=== PATIENT | male | born 2005 | race Caucasian/White ===

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

== ENCOUNTER 2024-02-08 02:26 | Outpatient (CLI) | payer OTHER, SELFPAY ==
[2024-02-08 12:43] LABS: Abs Immature Grans 0.02 10^3/uL (0.0-0.06); Absolute Basophil Count 0.03 10^3/uL (0.0-0.2); Absolute Eosinophil Count 0.05 10^3/uL (0.0-0.7); Absolute Lymphocyte Count 1.55 10^3/uL (1.2-3.4); Absolute Monocyte Count 0.36 10^3/uL (0.1-0.8); Absolute Neutrophil Count 2.78 10^3/uL (1.2-6.7); Basophils % 0.6 %; HCT 47.2 % (40.0-50.0); HGB 16.1 g/dL (13.5-17.5); Immature Grans % 0.4 %; Lymphocytes % 32.4 %; MCH 29.8 pg (27.0-33.0); MCHC 34.1 % (32.0-36.0); MCV 87 fL (80-95); MPV 11.1 fL (8.0-11.0); Monocytes % 7.5 %; Neutrophils % 58.1 %; Platelet Count 249 10^3/uL (130-400); RDW 12.5 % (11.8-14.1); RDW-SD 39.8 fL; WBC 4.79 10^3/uL (4.4-10.8)
[2024-02-08 13:16] LABS: Iron 77 ug/dL (65-175); Total Iron Binding Capacity 318 ug/dL (250-450)
[2024-02-08 13:20] LABS: Hemoglobin A1C 5.4 % (<5.7)
[2024-02-08 13:31] LABS: ALT 35 U/L (16-63); AST 17 U/L (15-37); Albumin 3.9 g/dL (3.4-5.0); Alkaline Phosphatase 46 U/L (46-116); Anion Gap 8.3 mmol/L (3-11); BUN 15 mg/dL (7-18); Bilirubin, Total 0.41 mg/dL (0.2-1.0); CO2 27.7 mmol/L (21.0-32.0); Calculated LDL 82 mg/dL (<100); Chloride 105 mmol/L (98-107); Cholesterol 150 mg/dL (<200); Ferritin 137 ng/mL (26-388); Glucose 85 mg/dL (74-106); HDL Cholesterol 57 mg/dL (40-60); Potassium 3.9 mmol/L (3.5-5.1); Sodium 141 mmol/L (136-145); TSH (W/Ref FT4) 2.75 uIU/mL (0.36-3.74); Total Protein 7.7 g/dL (6.4-8.2); Triglyceride 59 mg/dL (<150); Vitamin B12 615 pg/mL (193-986)
[2024-02-09 08:42] LABS: Transferrin 224 mg/dL (201-352)
[2024-02-17 13:25] LABS: Testosterone, Free 29.6 ng/dL (5.25-20.7); Testosterone, Total 826 ng/dL (240-950)
== END 2024-02-08 02:27 | disposition home or self-care (01) ==
LOC: LOS 02:27
PROVIDERS: PCP Nurse Practitioner Family; Visit Provider Nurse Practitioner Family
DX: R53.83 Other fatigue (principal); Z13.1 Encounter for screening for diabetes mellitus; Z13.220 Encounter for screening for lipoid disorders
CPT/HCPCS: 36415; 80053; 80061; 84402; 84403; 82607; 82728; 83036; 83540; 83550; 84443; 84466; 85025

== ENCOUNTER 2024-05-29 01:02 | Outpatient (CLI) | payer OTHER, SELFPAY ==
--- NOTE | 2024-05-29 06:30 | DI.MRI_ITS ---
Exam(s) MR LUMBAR SPINE WO EXAM: MR LUMBAR SPINE WO CLINICAL HISTORY: Worsening radiculopathy/bilat LBP, failing PT,m54.50. TECHNIQUE: Multiplanar multisequence MRI of the Lumbar spine was performed. COMPARISON: No plain films available time this MRI interpretation. FINDINGS: Five lumbar vertebrae are presumed. Conus medullaris is at normal level. There is no evidence of conus mass nor subjacent clumping of in trathecal nerve roots to suggest arachnoiditis. The distal thecal sac appears unremarkable.There is no evidence of Tarlov intrasacral cysts nor other significant findings within the sacral canal Bones:There are no fractures nor ominous osseous lesions in the lumbar vertebral bodies and visualize d sacrum. With respect to the individual levels... T12-L1: Unremarkable L1-2: Normal disc height and signal. No disc herniation nor central canal stenosis.No foraminal steno sis L2-3: Normal disc height. No disc herniation nor central canal stenosis.No foraminal stenosis.No face t arthropathy. L3-4: Normal disc height. No disc herniation or central canal stenosis.No foraminal stenosis.No face t arthropathy. L4-5: Normal disc height and signal. There is central subligamentous annular bulging which slightly indents the thecal sac. There is no prominent disc herniation. Central canal dimensions are lower n ormal. Facet joints unremarkable. No foraminal stenosis. L5-S1: Slightly decreased disc height. There is annular bulging and a superimposed central subligame ntous disc herniation which extends posteriorly 7 mm and is 14 mm wide. This contacts the anterior t hecal sac. The actual osseous canal dimensions are lower normal. There is no disc herniation extens ion into the exiting neural foramina on either side. There is some mild degenerative change in the l eft facet joint at this level. No pars defects. No listhesis. Soft tissues: paraspinal soft tissues appear unremarkable. IMPRESSION: 1. There is a central posterior disc herniation at L5-S1 level as described above. 2. There is mild central subligamentous annular bulging at L4-5 level. 3. No listhesis. No fractures. No scoliosis. DATA REPOSITORY:
== END 2024-05-29 01:22 ==
LOC: DI 01:02
PROVIDERS: PCP Nurse Practitioner Family; Visit Provider Nurse Practitioner Family
DX: M51.27 Other intervertebral disc displacement, lumbosacral region (principal)
CPT/HCPCS: 72148

== ENCOUNTER 2024-12-19 12:07 | Outpatient (CLI) | payer BC, SELFPAY ==
[2024-12-19 12:11] VITALS: PULSE 70; RESP 20; TEMP 36.6; O2SAT 98
[2024-12-19 12:31] VITALS: PULSE 70; PULSE 72; O2SAT 98
[2024-12-19 12:33] VITALS: BP 141/74; PULSE 68; PULSE 69; RESP 16; O2SAT 98
--- NOTE | 2024-12-19 12:40 | PDOC.PAIN_ITS ---
Date of service: 12/19/24 Time of Service: 12:40 Pain Managment Procedure Note Procedure Note Procedure Note: PROCEDURE NOTE LUMBAR EPIDURAL STEROID INJECTION Date of Service: December 19, 2024 Patient:Oli Martin? Provider: Isai Vega DO, MPH Oli Foster has been referred to the [facility] for a lumbar epidural steroid injection. Pre-operative diagnosis: Lumbosacral Radiculopathy ICD-10 M54.16 Post-operative diagnosis: Same Pre-Procedure Pain: VAS= 7 /10 Comments: I previously evaluated him in the office. No change in symptoms. Oli was interviewed and the medical record was reviewed.? There were no medical, pharmacologic, radiographic or other structural contraindications to attempting fluoroscopically guided Lumbar epidural steroid injection.? Risks, potential side effects, indications, and potential benefits of the procedure were reviewed with Oli.? Questions and concerns were addressed.? After it was clear that Oli was fully informed about the procedure, the printed consent form was signed by the patient and myself.? Oli was placed in the prone position on the fluoroscopy table and automated blood pressure cuff and pulse oximeter applied. The skin entry point for entering/approaching the epidural space for the lumbar epidural steroid injection was marked. Following thorough chlorhexadine preparation of the skin and draping and 1% lidocaine infiltration of the skin entry point and subcutaneous tissues, an 18 gauge Touhy needle was placed and advanced under fluoroscopic guidance and with loss of resistance technique into the L5-S1 epidural space. Needle tip placement and depth were aided and confirmed by fluoroscopy. There was no paresthesia or return of blood or CSF through the needle. 1 mls of Omnipaque 240 was injected with clear epidural spread confirmed with fluoroscopy. 80 mg of Depo-Medrol was? injected. This was followed by 1 ml of preservative-free normal saline to flush the steroid out of the needle. There was no unusual discomfort expressed by Oli. The needle was withdrawn without difficulty. (49 mls of Omnipaque was wasted) Oli was observed and was without hemodynamic, neurologic, or allergic reactions.? Fluoroscopic images were digitally archived. Oli's vital signs were stable throughout the procedure and were as recorded in nursing records. Follow up plans and appointments were discussed with Oli. Post procedure instruction was given as documented in nursing records and having met discharge criteria Oli was discharged from the [facility]. COMMENTS: No apparent complications. Post-procedure pain: VAS= 3/10. Oli to contact [facility] as needed. If at least 50% improvement in pain and/or function for at least 3 months is achieved, this procedure can be repeated. I personally performed this entire procedure. ISAI VEGA DO, MPH ABPMR-subspecialty board certification in Pain Medicine [facility] Coding Conscious Sedation used for procedure: No CPT Codes: Inj Spine L/S w/Imaging - 02650 ([id number] ~G) Additional Codes: Date of Service (33023) Date of service: 12/19/24
[2024-12-19 12:42] VITALS: BP 138/82; PULSE 71
--- NOTE | 2024-12-19 12:42 | DI.RAD_ITS ---
Exam(s) XR PAIN CLINIC LUMBAR SP 2V EXAM: XR PAIN CLINIC LUMBAR SP 2V CLINICAL HISTORY: DX: Lumbar Radiculopathy TECHNIQUE: 2D and realtime digital imaging was performed. CONTRAST MATERIAL: Refer to procedure report. COMPARISON: No exams were available for comparison FINDINGS: Fluoroscopy was provided for Dr. Vega during the performance of a lumbar epidural steroid injection. Please refer to the procedure report for complete details. Ka,r=5.3 mGy IMPRESSION: RADIATION DOSE DELIVERED: 0.0 0.0 0
[2024-12-19] MEDS: Omnipaque 240 MG/ML 50 ML BTL IJ (12:44)
[2024-12-19] MEDS: methylPREDNISolone ACETATE 80 MG/ML VIAL IJ (12:45)
[2024-12-19] MEDS: Epidural Tray 1 EACH MC (12:45)
== END 2024-12-19 12:08 | disposition home or self-care (01) ==
LOC: PC 12:07
PROVIDERS: PCP Nurse Practitioner Family; Visit Provider Preventive Medicine Occupational Medicine
DX: M54.16 Radiculopathy, lumbar region (principal)
CPT/HCPCS: 62323; 72100; J1010; Q9967